=== PATIENT | female | born 1975 | race Caucasian/White ===

== ENCOUNTER 2022-11-04 15:36 | Emergency (ER) | payer OTHER, SELFPAY ==
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
[2022-11-04 15:49] VITALS: BP 127/81; PULSE 65; RESP 18; TEMP 36.5; O2SAT 100
--- NOTE | 2022-11-04 16:56 | PC.NURSE ---
refused c-collar, pt reported she is claustrophobic and cannot wear collar. ERP informed
--- NOTE | 2022-11-04 17:00 | PC.NURSE ---
pt refusing monitor, reports it makes her anxious.
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
[2022-11-04] MEDS: MECLIZINE HCL 25 MG TABLET PO (18:19)
[2022-11-04] MEDS: ACETAMINOPHEN 500 MG TABLET 1000 MG PO (18:19)
[2022-11-04 18:35] VITALS: BP 126/74; PULSE 68; RESP 16; TEMP 36.9; O2SAT 98
== END 2022-11-04 18:35 | disposition home or self-care (01) ==
PROVIDERS: Emergency Provider Physician Assistant; PCP Internal Medicine Infectious Disease
DX: S16.1XXA Strain of muscle, fascia and tendon at neck level, initial encounter (principal); S39.012A Strain of muscle, fascia and tendon of lower back, initial encounter; M47.812 Spondylosis without myelopathy or radiculopathy, cervical region; M47.816 Spondylosis without myelopathy or radiculopathy, lumbar region; V49.40XA Driver injured in collision with unspecified motor vehicles in traffic accident, initial encounter
CPT/HCPCS: 70450; 72110; 72125; 99284; A9270; L0140

== ENCOUNTER 2025-02-18 15:56 | Emergency (ER) | payer OTHER, SELFPAY ==
--- OUTSIDE RECORDS SUMMARY | 2025-02-18 16:00 | XMS_ITS | Clinical Summary ---
Author Organization [facility] Address [address] [place] [id number] Care Team Providers Care Equipment Processor Name Role Phone Unavailable Primary Care Provider Unavailabl e Social History Tobacco Use Types Packs/Day Years Used Date Smoking Tobacco: Never Assessed Comments Unknown Sex and Gender Information Value Date Recorded Sex Assigned at Not on file Legal Sex Female 8:02 PM CDT Gender Identity Not on file Sexual Orientation Not on file Last Filed Vital Signs Vital Sign Reading Time Taken Comments Blood Pressure 90/66 08/20/2012 6:49 PM CDT Pulse 70 08/20/2012 6:49 PM CDT Temperature - - Respiratory Rate - - Oxygen Saturation - - Inhaled Oxygen Concentration - - Weight 76.2 kg (168 lb) 07/19/2012 11:55 AM CDT Height 167.6 cm (5' 6) 07/19/2012 11:55 AM CDT Body Mass Index 27.12 07/19/2012 11:55 AM CDT Plan of Treatment Health Maintenance Due Date Last Done Comments Cervical Cancer Screening Pa p Smear (Age 30 to 64) Every 3 Years 1975 Colorectal Cancer Screening Colonoscopy (10 Years) 1975 Annual Physical 1978 Hepatitis C 1993 DTaP, Tdap and Td Vaccines ( 1 - Tdap) 1994 Hepatitis B Vaccines (1 of 3 - 19+ 3-dose series) 1994 Cervical Cancer Screening Pa p with HPV Testing (Age 30 to 64) Every 5 Years 2005 Cervical Cancer Screening with HPV 2005 Mammogram Screening 2015 COVID-19 Vaccine ( - 2024-2 6 season) 2024 Influenza Adult (#1) 2024 Pneumococcal Vaccine: 50+ Ye ars (1 of 1 - PCV) 2025 Zoster Vaccines (1 of 2) 2025 Hepatitis A Vaccines Aged Out No long er eligible based on patient's age to complete this topic Meningococcal B Vaccine Aged Out No l onger eligible based on patient's age to complete this topic Meningococcal Vaccine Aged Out No richard arun eligible based on patient's age to complete this topic RSV Immunizations Under 20 Months Aged Out No longer eligible based on patient's age to complete this topic
--- OUTSIDE RECORDS SUMMARY | 2025-02-18 16:00 | XMS_ITS | Data Portability ---
Author Organization RHEA DIMPLERobel Tidwell Address [address] [place] [address] Care Team Providers Care Hop Grower Name Role Phone GARY CHILDS Practice Management Consultant LOREN PATIÑO Lean Manager Assessment Encounter Date Assessment Date Assessment LastModified by Organization Details LastModified Time 04/05/2021 04/05/2021 I believe that Ms Purvis is able to return at this time, she however still needs to be seen by the psychiatrist. She did not like the way she felt after her sessions with the therapist. oajaun Not available 04/05/2021 18:46:15 12/15/2021 12/15/2021 She has a history of Thyroid nodules and follows up with both endocrinology and ENT oajao Not available 12/15/2021 20:49:21 05/16/2022 05/16/2022 I have reviewed the anatomy of her neck with her, the esophagus is posterior to the trachea and it is unlikely that it is causing the prominence in her suprasternal notch. oarogero Not available 05/16/2022 17:50:35 Plan of Treatment Reminders Order Date Submit Date Provider Last Modified By Organization Details Last Modified Time Details Appointments None recorded. Lab ARCELIA (antinuclea r antibodies) titer + pattern, ifa, serum 2022 023 [facility] ([employer] [facility]), [address], [place], [address], 09:48:25 dsDNA Ab, serum 2022 023 [facility] ([employer] venrty), [address], [place], [address], 3 09:48:25 rf (rheumatoid factor), serum 2022 023 [facility] ([employer] ven[facility]), [address], [place], [address], 3 15:34:46 ARCELIA (antinuclea r antibodies) screen, serum 2022 023 [facility] ([facility]), [address], [place], [address], 3 06:35:59 ESR (erythrocyt e sedimentati on rate), blood 2022 023 [facility] ([facility] venr[facility]), [address], [place], [address], 3 15:34:46 TSH + free T4, serum 2021 022 [facility] ([facility]), [address], [place], [address], 2 13:36:45 vitamin D, 25-hydroxy, total, serum 2021 022 [facility] ([facility]), [address], [place], [address], 3 12:55:37 noninvasive colorectal cancer DNA + occult blood screening, QL, stool 2021 022 [place] [employer], [address], [address], [place], [address], 3 10:18:28 CBC w/ auto diff 2021 [facility] ([employer] [facility]), [address], [place], [address], 3 12:54:45 CMP, serum or plasma 2021 [facility] ([employer] [facility]), [address], [place], [address], 2 11:10:17 lipid panel, serum 2021 [facility] ([employer] [facility]), [address], [place], [address], 3 12:55:02 urinalysis, complete 2021 [facility] ([employer]), [address], [place], [address], 2 11:12:40 HbA1c (hemoglobin A1c), blood 2021 [facility] ([employer] [facility]), [address], [place], [address], 3 12:55:29 Referral psychiatris t referral 2021 [facility] Not available 2 09:27:15 Procedures None recorded. Surgeries None recorded. Imaging US, neck, soft tissue - Swelling anterior part of the neck 2021 022 [facility], [address], [place], [address], 3 18:11:44 MAMMO, screening, bilateral [address] [facility], [address], [place], [address], 13:18:31 MAMMO, screening, bilateral 2021 022 [facility], [address], [place], [address], 13:04:21 Medication Orders None recorded. Patient TargetsNo targets recorded. Patient Instructions Encounter Date Encounter Id Patient Instructions Last Modified By Organization Details Last Modified Time 04/05/2021 [id number] prediabetes: car e instructions oajao Not available 04/05/2021 15:44:16 learning about breast cancer screening oajao Not available 04/05/2021 15:38:43 Labs RTW Psychiatrist as referred MMG Follow up in 6 months oajao Not available 04/05/2021 18:47:56 10/11/2021 [id number] body mass index: care instructions oajao Not available 10/11/2021 13:07:21 learning about healthy weight oajao Not available 10/11/2021 13:07:21 Labs Cologuard MMG? 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 oajao Not available 05/16/2022 12:36:45 Reason for Referral Psychiatrist Referral for Ad justment disorder with mixed anxiety and depressed mood Referring Physician: Jon Morales, Internal Medicine, Encounter Date: 04/05/2021 Results Created Date Observation Date Name Description Value Unit Range Abnormal Flag Note LastModifiedBy Organization Detail LastModifiedTime 10/12/1910/11/2022 COLOG UARD cologuard result Cancel led - Order d not applic able Not Available [facility] [address], [place], [address], 10/11/2022 10:18:27 05/09/19 23 05/09/2022 US, neck, soft tissu e No observ ation record ed. [facility] [address] [facility], [place], [address], 05/16/2022 12:28:14 11/05/19 23 11/04/2022 CT, head, w/o contr ast No observ ation record ed. [address] [facility], [place], [address], 11/06/2022 08:28:22 11/05/19 23 11/04/2022 CT, cervi yamil spine , w/o contr ast No observ ation record ed. [address] [facility], [place], [address], 11/06/2022 08:29:06 11/05/19 23 11/04/2022 XR, lumba r spine No observ ation record ed. [address] [place] [address], [address], 11/06/2022 08:29:39 Result Notes None recorded. Problems Name Problem SNOMED Code Status Onset Date Resolution Date Notes Provider Name and Address Organization Details Recorded Time Abnormal weight gain 026991993 Active Jon Morales MD Attn: Naty g,[address] [facility], [place], [address], [facility] 5 16:56:30 Sleep disorder 45132730 Active Jon Morales MD Attn: Accountin g,[address] [facility], [place], [address], [place] [facility] 5 11:45:27 Glomerulone phritis 89922640 Active Jon Morales MD Attn: Accountin g,[address] [facility], [place], [address], [place] [facility] 5 17:49:17 Mammography abnormal 042792809 Active Jon Morales MD Attn: Kingsleyin g,[address] [facility], [place], [address], [place] [facility] 5 16:56:30 Fatigue 18180087 Active Jon Morales MD Attn: Naty g,[address] [facility], [place], [address], [place] [facility] 5 16:56:30 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 Jon Morales MD Attn: Kingsleyin g,[address] [facility], [place], [address], [place] [facility] 0 11:49:42 History of thyroid disorder 725918975 Active 2019 Jon Morales MD Attn: Naty g,[address] [facility], [place], [address], [place] [facility] 0 12:43:12 Feeling stressed 614958920 Active 2019 Jon Morales MD Attn: Naty g,[address] [facility], [place], [address], [place] [facility] 0 12:44:04 Adjustment disorder with mixed anxiety and depressed mood 621374949 Active 2021 Jon Morales MD Attn: Naty g,[address] [facility], [place], [address], [place] [facility] 2 15:37:25 Colonoscopy declined 4053213271103 00 Active 2021 Jon Morales MD Attn: Naty reilly,[address] [facility], [place], [address], [place] [facility] 2 13:21:14 Vitamin D deficiency 50285178 Active 2021 Jon Morales MD Attn: Naty reilly,[address] [facility], [place], [address], [place] [facility] 2 13:43:41 Pain of multiple joints 59291723 Active 2022 Jon Morales MD Attn: Naty reilly,[address] [facility], [place], [address], [place] [facility] 3 12:23:00 Problem Notes None recorded. Procedures Surgical History Date Name Laterality Status Provider Name and Address Organization Details Recorded Time excision of lesion of skin completed Jon Morales MD Attn: Accounting, [facility], [place], [address], [facility] 06/10/2019 11:46:49 Imaging Results None recorded. Procedure Notes None recorded. Medical Equipment None Reported. Allergies No known drug allergies Medications Name Sig Start Date Stop Date Status Note LastModified by Organization Details LastModified Time ofloxacin 0.3 % eye drops 12/15 completed Not Available Not Available Not Available aspirin 81 mg tablet,gage yed release Take 1 tablet every day by oral route for 90 days. active PRN Not Available Not Available No t Available amoxicillin 875 mg tablet TK 1 T PO BID TAT 06/21 completed Not Available Not Available Not Available hydrocortis one 2.5 % lotion 03/02 completed Not Available Not Available Not Available triamcinolo ne acetonide 0.1 % topical ointment 03/02 completed Not Available Not Available Not Available nitroglycer in 0.4 mg sublingual tablet DISSOLVE ONE TABLET UNDER THE TONGUE EVERY 5 MINUTES NEEDED FOR CHEST PAIN. DO NOT EXCEED A TOTAL OF 3 DOSES IN 15 MINUTES. IF PAIN IS NO active Not Available Not Available No t Available mirtazapine 15 mg tablet Take 1 tablet every day by oral route at bedtime for 30 days. 06/24 completed Not Available Not Available Not Available azelastine 137 mcg (0.1 %) nasal spray active Not Available Not Available Not Available clobetasol 0.05 % scalp solution 03/02 completed Not Available Not Available Not Available fluticasone propionate 50 mcg/actuati on nasal spray,suspe nsion active Not Available Not Available Not Available clobetasol 0.05 % shampoo 03/02 completed Not Available Not Available Not Available nitrofurant oin monohydrate /macrocryst als 100 mg capsule 10/11 completed Not Available Not Available Not Available Vitamin D3 50 mcg (2,000 unit) tablet Take 1 tablet every day by oral route as directed for 30 days. 2020 active Not Available Not Available Not Avai lable Vitals Date Recorded Body height Body mass index (BMI) Body weight Heart rate Respiratory rate Oxygen saturation Systolic And Diastolic Provider Name and Address Organization Details Last Updated DateTime 2 167.64 cm 32.1 kg/m2 68640.1 6 g 86 /min 14 /min 99 % 110/70 mm[Hg] Marie Cordova MA [facility] 2 15:14:25 Date Recorded Body height Body mass index (BMI) Body weight Heart rate Oxygen saturation Respiratory rate Systolic And Diastolic Provider Name and Address Organization Details Last Updated DateTime 3 167.64 cm 29.9 kg/m2 73737.5 9 g 76 /min 98 % 14 /min 110/70 mm[Hg] Marie Cordova MA [facility] 3 13:07:10 Date Recorded Body height Body mass index (BMI) Body weight Oxygen saturation Respiratory rate Heart rate Systolic And Diastolic Provider Name and Address Organization Details Last Updated DateTime 3 167.64 cm 30 kg/m2 33255.1 8 g 97 % 14 /min 78 /min 110/70 mm[Hg] Marie Cordova MA [facility] 3 12:14:39 Date Recorded Body height Body mass index (BMI) Body weight Respiratory rate Heart rate Oxygen saturation Systolic And Diastolic Provider Name and Address Organization Details Last Updated DateTime 2 167.64 cm 31 kg/m2 61512.0 2 g 14 /min 84 /min 98 % 114/80 mm[Hg] ADILSON [place] [facility] 2 13:04:43 Date Recorded Body height Body mass index (BMI) Body weight Body temperature Oxygen saturation Heart rate Systolic And Diastolic Provider Name and Address Organization Details Last Updated DateTime 2 167.64 cm 30.8 kg/m2 51832.4 2 g 98.2 [degF] 99 % 59 /min 104/64 mm[Hg] Sylvester Gee [place] [facility] 2 13:12:17 Social History Question Answer Notes LastModified by Organizat ion Details LastModified Time Tobacco Smoking Status Former Smoker Jon Morales MD Attn: Accounting,[address] [place], [address], [facility] 03/02/2015 16:37:51 Do You Have An Advance Directive? No Information n ot available 05/14/2014 Are You Blind Or Do You Have Difficulty Seeing? No Information n ot available 06/21/2020 What Is Your Level Of Caffeine Consumption? Heavy Information not available 05/14/2014 How Much Tobacco Do You Chew? None Information not available 05/14/2014 In The 14 Days Before Symptom Onset, Have You Had Close Contact With A Laboratory-confirm ed COVID-19 While That Case Was Ill? No Information n ot available 06/10/2019 In The 14 Days Before Symptom Onset, Have You Had Close Contact With A Person Who Is Under Investigation For COVID-19 While That Person Was Ill? No Information not available 06/10/2019 Have You Been To An Area Known To Be High Risk For COVID-19? No Information not available 06/10/2019 Are You Deaf Or Do You Have Serious Difficulty Hearing? No Information not available 06/21/2020 What Type Of Diet Are You Following? REGULAR Information n ot available 06/21/2020 Education 2 Year College Information not available 05/14/2014 Are There Any Guns Present In Your Home? No Information not available 05/14/2014 Hard Of Hearing Or Deaf In One Or Both Ears? No Information not available 05/14/2014 Legally Blind In One Or Both Eyes? No Information no t available 05/14/2014 Marital Status Informati on not available 05/14/2014 What Was The Date Of Your Most Recent Tobacco Screening? 05/16/2022 Information not available 05/16/2022 Performs Monthly Self-breast Exam? No Information no t available 05/14/2014 Do You Use Your Seat Belt Or Car Seat Routinely? Yes Information not available 06/21/2020 Seat Belts Used Routinely Yes Information not available 05/14/2014 Smoke Alarm In Home Yes Information not available 05/14/2014 Do You Have Smoke And Carbon Monoxide Detectors In Your Home? Yes Information not available 06/21/2020 At What Age Did You Start Smoking Tobacco? 20 Information not available 05/14/2014 How Much Tobacco Do You Smoke? 1 PPW Information not available 05/14/2014 General Stress Level Medium Information not available 05/14/2014 Do You Use Sunscreen Routinely? Yes Information not available 05/14/2014 On What Date Was Tobacco Cessation Counseling Provided? 02/09/2021 [email or web address] Information not available 02/09/2021 How Many Years Have You Smoked Tobacco? 19 Information not available 05/14/2014 Sex: Unknown Functional Status Question Answer Note LastModified by Organizat ion Details LastModified Time What is your level of alcohol consumption? None Information not available 05/14/2014 Do you or have you ever used smokeless tobacco? Never used smokeless tobacco Information not available 06/10/2019 Are you able to care for yourself independently? 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 Never used electronic cigarettes Information not available 06/10/2019 What is your exercise level? Occasional Information not available 06/21/2020 Mental Status None recorded. Family History Nothing Reported. Medical History Condition Response Thyroid Problems Y Kidney or Bladder Problems Y Gynecological History Statement/Question Response Flow Moderate Date of LMP 05/30/2020 Frequency of Cycle (Q days) 28 On BCP's at Conception? N Menses Monthly Y Duration of Flow (days) 7 Age at Menarche 13 Current Control Method None Age at First Child 19 LMP Definite Obstetrics History GPAL:G 0 P 0 0 0 0 Immunizations Vaccine Type Date Status Note Provider Nam e and Address Organization Details Recorded Time Influenza, split virus, quadrivalent, preservative 9 completed Jon Morales MD Attn: Accounting[address] [place], [place], [address] [place] [address], [place] [facility] 06/10/2019 11:41:24 Influenza, split virus, quadrivalent, preservative 0 completed Jon Morales MD Attn: Accounting[address] [place], [address] [place] [address], [place] [facility] 06/21/2020 12:51:42 SARS-COV-2 (COVID-19) vaccine, UNSPECIFIED 1 completed Jon Morales MD Attn: Accounting[address] [place], [address] [place] [address], [place] [facility] 10/28/2020 12:25:01 SARS-COV-2 (COVID-19) vaccine, UNSPECIFIED 1 completed Jon Morales MD Attn: Accounting[address] [place], [address] [place] [address], [place] [facility] 10/28/2020 12:24:54 COVID-19, mRNA, LNP-S, PF, 30 mcg/0.3 mL dose 2 completed Jon Morales MD Attn: Accounting[address] [place], [address] [place] [address], [place] [facility] 04/05/2021 15:30:11 influenza, unspecified formulation 2 completed Marie Cordova MA null, [place] [facility] 04/21/2022 13:05:38 Influenza, high-dose, trivalent, PF 5 completed Jon Morales MD Attn: Accounting[address] [place], [place], [address] [place] [address], [facility] 12/15/2021 13:35:13 Tdap 5 completed Not Available [facility] 04[facility]12[facility] 02:30:20 Past Encounters Encounter ID Performer Location Encounter Start Date Encounter Closed Date Diagnosis/Indication Diagnosis SNOMED-CT Code Diagnosis ICD10 Code Diagnosis IMO Codes Diagnosis Note [id number] MD Cara Vargas (Adult Med) [address] [place] [phone] 05/14/2014 10:17:27 05/14/2014 12:11:55 General examination of patient [id number] 39 y/o WF who was last seen in this office 02/05/2014 , in the interim she was seen by the dermatolog ist who wants to remove a lesion on her posterior thorax, although she may have to switch providers because it is out of network. She did see her gynecologi st, but she lost her MMG request. Her CXR was reviewed and it was normal. The venous duplex scan was negative Her labs were all reviewed and they were all wnl except the FBS of 101, however her HBA1C was 5.5. Weight loss, exercise and a prudent diet Abnormal weight gain 735781236 There is a family history of DM, but her HBA1C is normal. This is probably multifacto rial, she works from home and she admits to being less active as well Sleep disorder 59867469 Fa tigue despite an adequate amount of sleep, weight gain of 10lbs from her last visit in February 2014 and another 34lb weight gain from 2011. She is not sure whether or not she snores. [id number] MD Cara Vargas (Adult Med) [address] [place] [id number] 03/02/2015 16:08:10 03/03/2015 12:16:51 Mammography abnormal 386279218 R92.8 Abnormal MMG 08/12/14 US of the right breast 08/24/14 asymmetric normal breast tissue MMG & US done 03/01/2015 were reviewed with the patient, 6 month follow up MMG was recommende d and it has been ordered Abnormal weight gain 161 171194 R63.5 R73.01 There is a family history of DM, but her HBA1C is normal. This is probably multifacto rial, she works from home and she admits to being less active as well She has changed her diet and she has stopped smoking. She should decrease her caloric intake and she should initiate an exercise regimen. Fatigue 84523901 R53.83 An evaluation for sleep apnea was done in August 13, 2014, she needs to reschedule her sleep studies. She also complains of her neuropathi c symptoms, I will check her B12/Folate . 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 Mesangial proliferative glomerulonephritis 09977615 N05.3 Screening for malignant neoplasm of breast 818748115 Z12.31 She should schedule her MMG. 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 Screening for malignant neoplasm of cervix 156943026 Z12.4 Disorder o f lipid metabolism 925731330 E78.9 [id number] MD Cara Vargas (Adult Med) [address] [place] [phone] 07/22/2020 08:00:23 07/23/2020 10:30:33 Infection screening 772829328 Z11.9 [id number] MD Cara Vargas (Adult Med) [address] [place] [phone] 10/28/2020 12:04:47 11/01/2020 10:47:26 Screening for malignant neoplasm of cervix 095164040 Z12.4 Reschedule d Stress 14635005 Z73.3 Adjustment disorder with mixed anxiety and depressed mood 181857603 F43.[address] to see ASAPER/911 if she has HI or SIStart Remeron 15 mg HS, side effects were discussed Paresthesia 98468299 R20 .2 Atypical chest pain 1025 46622 R07.89 [id number] MD Cara Kim (Adult Med) [address] [place] [id number] 02/09/2021 15:13:21 02/10/2021 06:44:48 Feeling stressed 578179011 Z73.3 Discussed RTW. She will contact . Letter sent [id number] MD Cara Vargas (Adult Med) [address] [place] [id number] 04/05/2021 15:07:32 04/07/2021 09:43:26 Adjustment disorder with mixed anxiety and depressed mood 545310940 F43.[address] to seeContinu e Remeron 15 mg HS. Screening for malignant neoplasm of breast 177342913 Z12.31 She should schedule her MMG. Impaired f asting glycemia 869588340 R73.01 [id number] MD Cara Vargas (Adult Med) [address] [place] [phone] 10/11/2021 12:55:46 10/12/2021 11:23:53 Adult health examination 598267583 Z00.01 Body mass index 30+ - obesity 193351852 Z68.31 Screening mammography of bilateral breasts 1751334401 30028 Z12.31 She apparently finds the MMG very painful. Screening for malignant neoplasm of colon 166764082 Z12.11 Dysphonia 82143095 R49.9 Vitamin D deficiency 347 78922 E55.9 Labs 06/23/2020 Normal TSH, low Vitamin D (11) Start Vitamin D Colonoscopy declined 037 9777264 15275 Z53.20 [id number] [facility] [address] [place] [phone] 12/15/2021 12:44:43 12/16/2021 14:23:13 Neck swelling 718326812 R22.1 [id number] Jon Morales MD [facility] (Adult Med) [address] [place] [id number] 04/21/2022 12:51:45 04/25/2022 12:23:51 Body mass index 25-29 - overweight 274327700 Z68.29 Overweight 161102888 E66 .3 SARS-CoV-2 vaccination declined 7179540570 Z28.21 Mammogram declined 03695 5004 Z53.20 That is too painful for me Colonoscopy declined 360 2541874 49167 Z53.20 That is too scary for me Pain of mu ltiple joints 21837091 M25.50 [id number] [facility] [address] [place] [id number] 05/16/2022 12:08:33 05/17/2022 09:40:10 Anti-nuclear factor detected 588010973 R76.8 Pain of mu ltiple joints 74696458 M25.50 Her ARCELIA was positive 1:320, homogeneou s pattern Change in voice 88275870 5 R49.9 Health Concerns Section Related Observation LastModified by Organization Detai ls LastModified Time None Recorded Concern Status LastModified by Organization Details LastModified Time None Recorded Advance Directives Directive N: Payers Insurance Date Sequence Insurance Name Policy Number Policy Ruiz Covered Member ID Ruiz Member ID Guarantor Name 07/31/2023 1 HERBERT [id number] Phyllis Purvis [id number] Phyllis Purvis Notes Date Note Type Note Provider Name and Address Organization Details Recorded Time 04/05/2021 text/html Anxiety/Depressi onRep orted by PatientHPIFor context, patient reportsmajor life stressors. For quality, patient reportssymptoms improved. For severity, patient reportsdenies suicidal ideations,able to maintain relationships, anddoes not interfere with activities of daily living. For duration, patient reportssymptoms lasting over 2 weeksandstablizing. For onset/timing, patient reportsstill present. For associated symptoms, patient reportsdenies homicidal ideations,no significant weight gain,no significant weight loss,no visual/auditory hallucinations,no delusions,no shortness of breath,mood good,no anxiety,no crying spells,no panic,no isolation,sleeping well,appetite good,energy good,no apathy, andmaintaining functionality.ROS as noted in the HPI Well, I am on a leave of abscence still. They make me feel worseI feel better nowBasically I am here for you to release me back to workI have to. but I am not really ready She has been speaking with a psychologist through [facility], she did not find this beneficial as it only makes her cry. With regards to her referral to the psychiatrist, she never made an appointment and she also stated that the psychiatrists at our site are not in network. Her son who appears to be the major source of her stress is better as he is under the care of a provider, she has also been working 4 hour days. Jon Morales MD Attn: [address] [place], [address], [facility] 04/05/2021 18:48:11 10/11/2021 text/html ROS as noted in the HPI They called me, you wanted to see me for a check upI lost my voice in MarchI had cystitis, I went to urgent care Ms Purvis returns, she has a history of vocal cord polyps and then developed dysphonia. She was seen by ENT, declined to get scoped and opted for Speech therapy. 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 For trauma, patient reportsno. For neurological complaints, patient reportsnone.ROS as noted in the HPI I have this, it was definitely biggerI sort of feel like air constriction She noticed swelling on the anterior part of her neck as well as limitation of air movement when she leans towards the left. Jon Morales MD Attn: Accounting[address] [facility], [place], [address], [facility] 12/15/2021 20:49:58 04/21/2022 text/html Hand/FingersRepo rted by PatientHPIFor associated symptoms, patient reportsswelling. For hand dominance, patient reportsright. For location, patient reportsbilateral. For quality, patient reportsaching. For severity, patient reportsmoderate. For duration, patient reports___ months. For timing, patient reportschronic. For context, patient reportscannot identify. For alleviating factors, patient reportsnothing helps. For aggravating factors, patient reportscannot identify. For previous surgery, patient reportsnone. For prior imaging, patient reportsnone. For previous injections, patient reportsnone. For previous pt, patient reportsnone. For work related, patient reportsno. For working, patient reportsregular duty.ROS as noted in the HPI Just a check up, they called me from your officeMy joints hurt, stiff and swollen Ms Purvis is doing well, she has noticed pain, stiffness and swelling in the interphalangeal joints of both hands. her symptoms improve as the day progresses. Her force adjustment supervisor ordered an US of the breast as she absolutely refuses to have a MMG and she is yet to turn in her Cologuard but continues to refuse a colonoscopy. Jon Morales MD Attn: Accounting[address] [facility], [place], [address], [facility] 04/21/2022 13:47:57 05/16/2022 text/html ROS as noted in the HPI I am doing okayI have this in my neck, is it possible that I have a hernia on the esophagus?He wouldn't look at my vocal cords Ms Purvis returns to review her results, she is convinced that there is a soft tissue mass in her suprasternal notch, she thinks she may also have a Zeckel's diverticulum putting pressure in the same area. She had dysphonia recentlyand was seen by ENT, the plan was an examination of her vocal cords, she is unwilling to get this done unless she is under anesthesia. She also describes issues with the muscles around her neck that improved after taking Epsom salt baths. Jon Morales MD Attn: [address]ing[address] [place], [address], [facility] 05/16/2022 17:51:21 OBGyn Episode No OBEpisode recorded.
--- OUTSIDE RECORDS SUMMARY | 2025-02-18 16:00 | XMS_ITS | Encounter Summary ---
Author Organization [facility] Healthcare Address [address] [place] [address] Care Team Providers Care Bowling Alley Floors Installer Name Role Phone Lauren Martin MD Primary Care Provider [phone] Jon Morales MD Primary Care Provider Encounter Details Date Type Department Care Team (Late st Contact Info) Description 06/10/2019 Orders Only [facility] Health Information Management [address] [place] [address] Scanning, Provider Social History Tobacco Use Types Packs/Day Years Used Date Smoking Tobacco: Every Day Comments Unknown Sex and Gender Information Value Date Recorded Sex Assigned at Not on file Legal 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 Gender Identity Not on file Sexual Orientation Not on file documented as of this encounter Plan of Treatment Not on file documented as of this encounter Procedures Procedure Name Priority Date/Time Associated Diagnosis Comments SCAN - OTHER ORDERS 06/10/2019 documented in this encounter Results * SCAN - OTHER ORDERS (06/10/2019) us Provider Scanning Final Result documented in this encounter Visit Diagnoses Not on filedocumented in this encounter Additional Health Concerns Infection Onset Date Last Indicated Resolved Time COVID: Suspected 02/17/2023 02/17/2023 02/17/2023 4:07 PM CREATIVE RECRUITER COVID19 02/17/2023 02/17/2023 02/27/2023 3:06 AM CREATIVE RECRUITER COVID: Recovered Comment:Added based on recent COVID infection. 02/27/2023 03/29/2023 05/28/2023 3:[address] documented as of this encounter Care Teams Bowling Alley Floors Installer Relationship Specialty [place] [id number] [facility] [address] [place] [address] PCP - General 10/02/19 01/08/20 Jon Morales MD [address] [address] PCP - General 01/09/20 documented as of this encounter
--- OUTSIDE RECORDS SUMMARY | 2025-02-18 16:00 | XMS_ITS | Encounter Summary ---
Author Organization [facility] Healthcare Address [address] [place] [address] Care Team Providers Care Guest Relations Agent Name Role Phone Jon Morales MD Primary Care Provider Reason for Visit * Reason Onset Date Comments Cancel 09/09/2021 Patient called a nd she went the wrong way and was too late Encounter Details Date Type Department Care Team (Late st Contact Info) Description 09/09/2021 Telephone [facility] [place] [address] Neris Menjivar, YOU Cancel (Patient called and she went the wrong way and was too late) Social History Tobacco Use Types Packs/Day Years Used Date Smoking Tobacco: Former AUDIT-C Answer Date Recorded Q1: How often do you have a drink containing alc ohol? 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 02/27/2023 03/29/2023 05/28/2023 3:[address] documented as of this encounter Care Teams Guest Relations Agent Relationship Specialty Start Date End Date Jon Morales MD [address] [place] [address] PCP - General 01/09/20 documented as of this encounter
--- OUTSIDE RECORDS SUMMARY | 2025-02-18 16:00 | XMS_ITS | Data Portability ---
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 Plan of Treatment Reminders Order Date Submit Date Provider Last Modified By Organization Details Last Modified Time Details Appointments None recorded. Lab None recorded. Referral None recorded. Procedures None recorded. Surgeries None recorded. Imaging None recorded. Medication Orders aspirin 81 mg tablet,de layed release 021 [facility] [employer], [address] [place] [address], [address], [place], [address], 12:16:27 aspirin 81 mg tablet,de layed release 021 [facility] [employer], [address] [place] [address], [address], [place], [address], 16:58:25 Patient TargetsNo targets recorded. Patient Instructions Encounter Date Encounter Id Patient Instructions Last Modified By Organization Details Last Modified Time 02/13/2018 [id number] Weight loss 20 pounds Exercise advised Low cholesterol diet advised Low sodium diet advised. [email or web address] Not available 02/13/2018 17:48:38 08/18/2020 [id number] Exercise advised Low cholesterol diet advised Low sodium diet advised. [email or web address] Not available 08/18/2020 10:24:47 Reason for Referral None Reported. Results Created Date Observation Date Name Description Value Unit Range Abnormal Flag Note LastModifiedBy Organization Detail LastModifiedTime 02/19/20 18 02/13/2018 elect rocar diogr am No observ ation record ed. [email or web address] Not Available 2017 16:41:36 04/23/19 19 02/25/2018 elect rocar diogr am No observ ation record ed. [email or web address] Not Available 2018 10:58:15 04/23/19 19 02/25/2018 exerc ise stres s echoc ardio gram No observ ation record ed. [email or web address] Not Available 2018 11:01:44 04/23/19 19 02/25/2018 fernando r monit or No observ ation record ed. [email or web address] Not Available 2020 13:16:10 08/20/19 21 08/18/2020 elect rocar diogr am No observ ation record ed. [email or web address] Not Available 08/20 13:32:24 12/02/19 21 09/14/2020 jonas can cardi olite stres s test (PROC ) No observ ation record ed. [email or web address] Not Available 2020 12:48:19 04/20/19 22 09/13/2020 XR, chest No observ ation record ed. [email or web address] Not Available 2021 10:49:28 07/22/19 22 09/10/2020 US, echoc ardio gram No observ ation record ed. [email or web address] Not Available 2021 11:14:23 07/22/19 22 09/10/2020 NM, myoca rdial perfu antonino scan, w/ stres s No observ ation record ed. [email or web address] Not Available 2021 11:15:50 05/08/19 23 05/04/2022 elect rocar diogr am No observ ation record ed. [email or web address] Not Available 2022 11:31:06 05/17/19 23 05/11/2022 elect rocar diogr am No observ ation record ed. [email or web address] Not Available 2022 15:20:44 Result Notes None recorded. Problems Name Problem SNOMED Code Status Onset Date Resolution Date Notes Provider Name and Address Organization Details Recorded Time Essential hypertension 55746596 Active 2018 Not Available [facility] 18:55:39 Dyslipidemia 932828609 Active 2018 Not Available [facility] 18:55:39 Dyspnea on exertion 88930513 Active 2018 Not Available [facility] 18:55:39 Palpitations 26528838 Active 2018 Not Available [facility] 18:55:39 Atypical chest pain 054934569 Active 2018 Not Available [facility] 18:55:39 Problem Notes None recorded. Procedures Surgical History Date Name Laterality Status Provider Name and Address Organization Details Recorded Time cordectomy of vocal cord completed Jose Antonio Elaine MD [address] [place], [address], [facility] 02/13/2018 17:34:37 Imaging Results None recorded. Procedure Notes None recorded. Medical Equipment None Reported. Allergies No known drug allergies Medications Name Sig Start Date Stop Date Status Note LastModified by Organization Details LastModified Time ofloxacin 0.3 % eye drops active Not Available Not Available Not Available aspirin 81 mg tablet,gage yed release Take 1 tablet every day by oral route. active Not Available Not Available No t Available amoxicillin 875 mg tablet TK 1 T PO BID TAT 08/18 completed Not Available Not Available Not Available nitroglycer in 0.[address] 1 tablet 3 times a day by sublingua l route as needed. active Not Available Not Available No t Available mirtazapine 15 mg tablet active Not Available Not Available Not Available azelastine 137 mcg (0.1 %) nasal spray active Not Available Not Available Not Available fluticasone propionate 50 mcg/actuati on nasal spray,suspe nsion active Not Available Not Available Not Available nitrofurant oin monohydrate /macrocryst als 100 mg capsule active Not Available Not Available Not Available Vitals Date Recorded Body height Body mass index (BMI) Body weight Heart rate Respiratory rate Oxygen saturation Systolic And Diastolic Provider Name and Address Organization Details Last Updated DateTime 3 167.64 cm 30.2 kg/m2 42907.7 7 g 76 /min 16 /min 98 % 124/82 mm[Hg] Juan Tillman [facility] 3 17:45:08 Date Recorded Body height Body mass index (BMI) Body weight Heart rate Respiratory rate Oxygen saturation Body temperature Systolic And Diastolic Provider Name and Address Organization Details Last Updated DateTime 1 167.64 cm 30.7 kg/m2 87640.5 5 g 68 /min 18 /min 98 % 96.2 [degF] 110/70 mm[Hg] Torrie Ovalles [facility] 1 15:27:41 Date Recorded Body height Body mass index (BMI) Body weight Heart rate Oxygen saturation Systolic And Diastolic Provider Name and Address Organization Details Last Updated DateTime 1 167.64 cm 32.3 kg/m2 06910.4 7 g 78 /min 98 % 112/74 mm[Hg] FREDRICK ALMAGUER [facility] 1 11:08:15 Date Recorded Oxygen saturation Heart rate Body weight Body mass index (BMI) Body height Systolic And Diastolic Provider Name and Address Organization Details Last Updated DateTime 8 99 % 69 /min 41831.8 1 g 29.4 kg/m2 167.64 cm 120/60 mm[Hg] IRLANDA Ruiz [facility] 8 17:10:46 Social History Question Answer Notes LastModified by [employer] Details LastModified Time Tobacco Smoking Status Former Smoker Not Available [facility] 01/27/2020 03:30:43 What Was The Date Of Your Most Recent Tobacco Screening? 02/13/2018 [id number] Information not available 01/27/2020 Sex: Unknown Functional Status Question Answer Note LastModified by [employer] Details LastModified Time Do you or have you ever used smokeless tobacco? Former smokeless tobacco user Information not available 08/18/2020 Do you or have you ever used e-cigarettes or vape? Never used electronic cigarettes Information not available 08/18/2020 Mental Status None recorded. Family History Relationship Description Onset Age of this Age Resolved Age Notes LastModified by Organization Details LastModified Time Paternal Grandmother Heart disease [email or web address] Not available 01/25 17:33:14 Medical History Condition Response Thyroid Disease Y Hyperlipidemia Y Arrhythmia Y Hypertension Y Gynecological HistoryNo gynecological history recorded. Obstetrics History GPAL:G 0 P 0 0 0 0 Past Encounters Encounter ID Performer Location Encounter Start Date Encounter Closed Date Diagnosis/Indication Diagnosis SNOMED-CT Code Diagnosis ICD10 Code Diagnosis IMO Codes Diagnosis Note [id number] MD Patricio Glover e Office [address] [place] [address] 02/13/2018 16:57:46 02/13/2018 17:53:06 Atypical chest pain 163691889 R07.89 Will get exercise stress echo, to look for any structural heart disease, and to look for any ischemia Essential hypertension 75971389 I10 Dyslipidemia 642867773 E 78.5 Needs to keep LDL less than 70, and HDL more than 40Will get fating lipids for follow up Dyspnea on exertion 6084 5006 R06.09 Palpitations 22572467 R0 0.2 24 Holter [id number] MD Patricio Ellis e Office [address] [place] [address] 08/18/2020 15:10:21 08/18/2020 15:44:49 Atypical chest pain 882861409 R07.89 Patient presents with chest pain with atypical features. Given the history, exam findings and intermedia te cardiac risk factors, I feel additional investigat ion is warranted. I have made arrangemen ts in the near future for an exercise stress nuclear test and an echocardio gram to evaluate for any ischemia or structural heart disease. The procedure was discussed with the patient, and risks, benefits, and alternativ e options were explained. Appropriat e labwork has not been performed recently, therefore I have made arrangemen ts for further testing. I have asked the patient to curtail exercise and activities until our investigat ion is complete. I have made the following adjustment s to the present medical regimen. Patient has been started on daily aspirin. Essential hypertension 47821334 I10 Patient's blood pressure is well-contr olled on present medical therapy. Patient is tolerating , without difficulty , the current medication s. I have not made changes to the current regimen. Patient is advised to maintain a blood pressure diary. Cont low Na diet. Dyslipidemia 815336740 E 78.5 Needs to keep LDL less than 70, and HDL more than 40 Will get fasting lipids for follow up 02/25/18: TC 140, TG 41, HDL 64 ,LDL 68, TSH 5.34* Dyspnea on exertion 6084 5006 R06.09 Palpitations 58462518 R0 0.2 [facility] monitor [id number] Billy De La Cruz MD [place] OFF[facility] [place] [address] 11/11/2020 10:55:54 11/11/2020 12:14:30 Atypical chest pain 662584664 R07.89 stress test negativeco nt medical management and risk factor modificati on Essential hypertension 41767168 I10 Patient's blood pressure is well-contr olled on present medical therapy. Patient is tolerating , without difficulty , the current medication s. I have not made changes to the current regimen. Patient is advised to maintain a blood pressure diary. Cont low Na diet. Dyslipidemia 061632471 E 78.5 Patient's hyperlipid emia is not well-contr olled on present medical therapy. Patient is tolerating , without difficulty , the current medication s. I have not made changes to the current regimen. Cont low cholestero l diet.FLP in 5 months 6030426 Cholestero l: 201; Triglyceri april: 65; HDL: 65; LDL: 123; HDL: 136 Dyspnea on exertion 6084 5006 R06.09 Palpitations 52567785 R0 0.2 [facility] monitor [id number] Jose Antonio Elaine MD [place] [facility] [place] [address] 05/11/2022 17:20:05 05/11/2022 18:03:24 Atypical chest pain 192935327 R07.89 stress test negativeco nt medical management and risk factor modificati on Essential hypertension 11899416 I10 Patient's blood pressure is well-contr olled on present medical therapy. Patient is tolerating , without difficulty , the current medication s. I have not made changes to the current regimen. Patient is advised to maintain a blood pressure diary. Cont low Na diet. Dyslipidemia 673310533 E 78.5 Patient's hyperlipid emia is not well-contr olled on present medical therapy. Patient is tolerating , without difficulty , the current medication s. I have not made changes to the current regimen. Cont low cholestero l diet.FLP in 5 months 6030426 Cholestero l: 201; Triglyceri april: 65; HDL: 65; LDL: 123; HDL: 136 Dyspnea on exertion 6084 5006 R06.09 Palpitations 49580301 R0 0.2 monitor was negative Health Concerns Section Related Observation LastModified by Organization Detai ls LastModified Time None Recorded Concern Status LastModified by Organization Details LastModified Time None Recorded Advance Directives Directive None Recorded Payers Insurance Date Sequence Insurance Name Policy Number Policy Ruiz Covered Member ID Ruiz Member ID Guarantor Name 11/07/2022 1 HERBERT [id number] Phyllis Purvis [id number] Phyllis Purvis Notes Date Note Type Note Provider Name and Address Organization Details Recorded Time 02/13/2018 text/html CC: chest pain 43 year-old woman with history obesity of presents for cardiac consultation with a chief complaint of chest pain, and Shortness of breath. She was in ER at [place] last night, had Palpitation, and dizziness, now with non exertional chest pain, this would last for few minutes, had negative CTA, and negative enzymes. No known history of CAD, SD, Arrhythmia, or valvular heart disease Results from this visit, or from the past: EKG 02/13/18 ; Normal sinus rhythm Within normal limits . Jose Antonio Elaine MD [address] [place], [address], [facility] 02/13/2018 17:50:05 08/18/2020 text/html 08/18/2020 CC: chest pain HPI: 45 year-old WF with PMH of HLD, HTN , obesity of presents for cardiac consultation with a chief complaint of chest pain. No known history of CAD, SD, Arrhythmia, or valvular heart disease Patient was last seen in January 2018 as a new consult, after which they were lost to followup. Her original consultation was for palpitations, dizziness, and chest pain that resulted in an ER visit. At that visit a stress echo, labs and holter were ordered, resulting in: Compliains for episodes of sharp, heavy, sqeezing chest discomfort.. no related to physical actvity. States that sometimes heart stops and restarts.. Stress Echo Exercise Test 02/25/18: EKG portion of the stress test negative for ischemia. No arrhythmias. Stress echo is negative for ischemia. No chest pain or shortness of breath. Appropriate heart rate and blood pressure response to exercise. Holter Monitor 24 hr 02/25/18: Patient remains predominantly in normal sinus rhythm during the study. No significant supraventricular arrhythmias. Frequent premature ventricular contractions, sometimes in bigeminy or trigeminy pattern. No ventricular tachycardia. No significant pauses. Symptoms of sharp chest discomfort are present during the normal sinus rate She returns today due to chest pain. She describes it sharp pain, and sometimes squeezing like someone is twisting in her chest. No correlation to activity. It has woken her up from her sleep, causing her to scream. She feels as though she is skipping beats. She is following up with endocrinology due to thyroid nodules, but she does not require medication. She is pre diabetic.PreviouslyStr ess Echo Exercise Test 02/25/18: EKG portion of the stress test negative for ischemia. No arrhythmias. Stress echo is negative for ischemia. No chest pain or shortness of breath. Appropriate heart rate and blood pressure response to exercise. Holter Monitor 24 hr 02/25/18: Patient remains predominantly in normal sinus rhythm during the study. No significant supraventricular arrhythmias. Frequent premature ventricular contractions, sometimes in bigeminy or trigeminy pattern. No ventricular tachycardia. No significant pauses. Symptoms of sharp chest discomfort are present during the normal sinus rate 02/25/18: Na 138 , K 4.0, CL 102 ,CO2 28 , GLU 96 ,BUN 7 ,CR 0.6 ,AST12 ,ALT 9 02/25/18: TC 140, TG 41, HDL 64 ,LDL 68, TSH 5.34* Results from this visit, or from the past:02/25/18: TC 140, TG 41, HDL 64 ,LDL 68, TSH 5.34*02/25/18: Na 138 , K 4.0, CL 102 ,CO2 28 , GLU 96 ,BUN 7 ,CR 0.6 ,AST12 ,ALT 9, EKG (08/18/20): NSR, NSST changesEKG 02/25/18: Normal sinus rhythm, Low voltage QRS. Borderline ECG, when compared with ECG of 02/25/18. No significant change was found. cf EKG 02/13/18 ; Normal sinus rhythm Within normal limits . Holter Monitor 24 hr 02/25/18: Patient remains predominantly in normal sinus rhythm during the study. No significant supraventricular arrhythmias. Frequent premature ventricular contractions, sometimes in bigeminy or trigeminy pattern. No ventricular tachycardia. No significant pauses. Symptoms of sharp chest discomfort are present during the normal sinus rate. cf Stress Echo Exercise Test 02/25/18: EKG portion of the stress test negative for ischemia. No arrhythmias. Stress echo is negative for ischemia. No chest pain or shortness of breath. Appropriate heart rate and blood pressure response to exercise. Billy De La Cruz [facility] 08/18/2020 16:59:30 11/11/2020 text/html 11/11/20 CC: chest pain fu HPI: 45 year-old WF with PMH of HLD, HTN , obesity of presents for cardiac consultation with a chief complaint of chest pain. No known history of CAD, SD, Arrhythmia, or valvular heart disease Pt presents for scheduled fu. Since last time she states that she presented to ER of [facility] in August 2020.L side of her body was hurtingpt was told that her stress test was normal.after few hours was dc home since then he had a lot ofstress ful situations at home. Pt had stress test and ECHO at [facility] in August 2020.Event monitor was done at [facility] in [place].No records of these tests are available at this point. Now she goes for 1 month vacation to [place]. PreviouslyPt was seen in January 2018 as a new consult, after which they were lost to followup. Her original consultation was for palpitations, dizziness, and chest pain that resulted in an ER visit. At that visit a stress echo, labs and holter were ordered, resulting in: Compliains for episodes of sharp, heavy, sqeezing chest discomfort.. no related to physical actvity. States that sometimes heart stops and restarts.. Stress Echo Exercise Test 02/25/18: EKG portion of the stress test negative for ischemia. No arrhythmias. Stress echo is negative for ischemia. No chest pain or shortness of breath. Appropriate heart rate and blood pressure response to exercise. Holter Monitor 24 hr 02/25/18: Patient remains predominantly in normal sinus rhythm during the study. No significant supraventricular arrhythmias. Frequent premature ventricular contractions, sometimes in bigeminy or trigeminy pattern. No ventricular tachycardia. No significant pauses. Symptoms of sharp chest discomfort are present during the normal sinus rate She returns today due to chest pain. She describes it sharp pain, and sometimes squeezing like someone is twisting in her chest. No correlation to activity. It has woken her up from her sleep, causing her to scream. She feels as though she is skipping beats. She is following up with endocrinology due to thyroid nodules, but she does not require medication. She is pre diabetic.PreviouslyStr ess Echo Exercise Test 02/25/18: EKG portion of the stress test negative for ischemia. No arrhythmias. Stress echo is negative for ischemia. No chest pain or shortness of breath. Appropriate heart rate and blood pressure response to exercise. Holter Monitor 24 hr 02/25/18: Patient remains predominantly in normal sinus rhythm during the study. No significant supraventricular arrhythmias. Frequent premature ventricular contractions, sometimes in bigeminy or trigeminy pattern. No ventricular tachycardia. No significant pauses. Symptoms of sharp chest discomfort are present during the normal sinus rate 02/25/18: Na 138 , K 4.0, CL 102 ,CO2 28 , GLU 96 ,BUN 7 ,CR 0.6 ,AST12 ,ALT 912: TC 140, TG 41, HDL 64 ,LDL 68, TSH 5.34* Results from this visit, or from the past:LIPIDS ([id number]) Cholesterol: 201; Triglycerides: 65; HDL: 65; LDL: 123; HDL: 136 CMP, serum or plasma 08-27-2020 02/25/18: TC 140, TG 41, HDL 64 ,LDL 68, TSH 5.34*02/25/18: Na 138 , K 4.0, CL 102 ,CO2 28 , GLU 96 ,BUN 7 ,CR 0.6 ,AST12 ,ALT 9, electrocardiogram [id number] (08/18/20): NSR, NSST changesEKG 02/25/18: Normal sinus rhythm, Low voltage QRS. Borderline ECG, when compared with ECG of 02/25/18. No significant change was found. cf EKG 02/13/18 ; Normal sinus rhythm Within normal limits . Holter Monitor 24 hr 02/25/18: Patient remains predominantly in normal sinus rhythm during the study. No significant supraventricular arrhythmias. Frequent premature ventricular contractions, sometimes in bigeminy or trigeminy pattern. No ventricular tachycardia. No significant pauses. Symptoms of sharp chest discomfort are present during the normal sinus rate. cf Stress Echo Exercise Test 02/25/18: EKG portion of the stress test negative for ischemia. No arrhythmias. Stress echo is negative for ischemia. No chest pain or shortness of breath. Appropriate heart rate and blood pressure response to exercise. Billy De La Cruz [facility] [place] [facility] 11/11/2020 12:16:24 05/11/2022 text/html 05/11/22CC : Cardiac follow upHPI: 47 year-old WF with PMH of HLD, HTN , and obesity is here for follow up with EKG results. She was last seen in the clinic on 11/11/20, since then she is not very activeShe denies ER visits and hospitalizations since she was last seen. Had left sided chest pain.Denies shortness of breath at rest. Has mild dyspnea on exertion.No orthopnea. No PNDs.Denies heart palpitations.Denies dizziness. Denies syncope or near syncope.No ankle or leg edema.No major bleeding events.No reported side effects from medications. Taking medications as prescribed with no missed doses.Denies snoring, daytime somnolence and AM headache.*Last LDL was 68 done on 02/24/18.Pt dose not takes any statins. EKG 05/04/22 Sinus rhythm, short UT interval, P; normal, QRS; normal, ST-T; normal, conclusion: ECG without significant abnormalities. Previously:She had chest pain. Since last time she states that she presented to ER of [facility] in August 2020.L side of her body was hurtingpt was told that her stress test was normal.after few hours was dc home since then he had a lot of stress ful situations at home. Pt was seen in January 2018 as a new consult, after which they were lost to followup. Her original consultation was for palpitations, dizziness, and chest pain that resulted in an ER visit. At that visit a stress echo, labs and holter were ordered, resulting in: Compliains for episodes of sharp, heavy, sqeezing chest discomfort.. no related to physical actvity. States that sometimes heart stops and restarts.. Stress Echo Exercise Test 02/25/18: EKG portion of the stress test negative for ischemia. No arrhythmias. Stress echo is negative for ischemia. No chest pain or shortness of breath. Appropriate heart rate and blood pressure response to exercise. Holter Monitor 24 hr 02/25/18: Patient remains predominantly in normal sinus rhythm during the study. No significant supraventricular arrhythmias. Frequent premature ventricular contractions, sometimes in bigeminy or trigeminy pattern. No ventricular tachycardia. No significant pauses. Symptoms of sharp chest discomfort are present during the normal sinus rate She returns today due to chest pain. She describes it sharp pain, and sometimes squeezing like someone is twisting in her chest. No correlation to activity. It has woken her up from her sleep, causing her to scream. She feels as though she is skipping beats. She is following up with endocrinology due to thyroid nodules, but she does not require medication. She is pre diabetic.Previously Stress Echo Exercise Test 02/25/18: EKG portion of the stress test negative for ischemia. No arrhythmias. Stress echo is negative for ischemia. No chest pain or shortness of breath. Appropriate heart rate and blood pressure response to exercise. *Holter Monitor 24 hr 02/25/18: Patient remains predominantly in normal sinus rhythm during the study. No significant supraventricular arrhythmias. Frequent premature ventricular contractions, sometimes in bigeminy or trigeminy pattern. No ventricular tachycardia. No significant pauses. Symptoms of sharp chest discomfort are present during the normal sinus rate 02/25/18: Na 138 , K 4.0, CL 102 ,CO2 28 , GLU 96 ,BUN 7 ,CR 0.6 ,AST12 ,ALT 9104/28/17: TC 140, TG 41, HDL 64 ,LDL 68, TSH 5.34* Results from this visit, or from the past:LIPIDS (535887) Cholesterol: 201; Triglycerides: 65; HDL: 65; LDL: 123; HDL: 136 CMP, serum or plasma 08-27-2020 02/25/18: TC 140, TG 41, HDL 64 ,LDL 68, TSH 5.34*02/25/18: Na 138 , K 4.0, CL 102 ,CO2 28 , GLU 96 ,BUN 7 ,CR 0.6 ,AST12 ,ALT 9,electrocardiogram [id number] (08/18/20): NSR, NSST changesEKG 02/25/18: Normal sinus rhythm, Low voltage QRS. Borderline ECG, when compared with ECG of 02/25/18. No significant change was found. cf EKG 02/13/18 ; Normal sinus rhythm Within normal limits . Holter Monitor 24 hr 02/25/18: Patient remains predominantly in normal sinus rhythm during the study. No significant supraventricular arrhythmias. Frequent premature ventricular contractions, sometimes in bigeminy or trigeminy pattern. No ventricular tachycardia. No significant pauses. Symptoms of sharp chest discomfort are present during the normal sinus rate. cf Stress Echo Exercise Test 02/25/18: EKG portion of the stress test negative for ischemia. No arrhythmias. Stress echo is negative for ischemia. No chest pain or shortness of breath. Appropriate heart rate and blood pressure response to exercise. Jose Antonio Elaine MD [address] [place], [address], [facility] 05/11/2022 18:01:14 OBGyn Episode No OBEpisode recorded.
--- OUTSIDE RECORDS SUMMARY | 2025-02-18 16:00 | XMS_ITS | Clinical Summary ---
Author Organization [facility] Address [address] [place] [id number] Care Team Providers Care Lens Molding Equipment Operator Name Role Phone Jon Morales MD Primary Care Provider Allergies Active Allergy Reactions Criticality Noted Date Comments Gloves, Latex With Aloe Vera Unknown 05/24/2020 Powder Scent Fragrance Agitation High 05/24/2020 Pt described throat closing sensation whenever she comes in contact w/ chemical smells and perfumes -RJ Medications nitroglycerin (NITROSTAT) 0.[address] 0.4 mg under the tongue every 5 (five) minutes as needed for chest pain Active vitamin B complex capsule Take 1 capsule by mouth daily Active ascorbic acid (VITAMIN C) 500 mg tablet,chewable Acti ve cholecalciferol (VITAMIN D-3) 5,000 unit capsule Take 1 capsule (5,000 Units total) by mouth daily Active nitrofurantoin monohydrate (MACROBID) 100 mg capsule prn Active azelastine (ASTELIN) 137 mcg (0.1 %) nasal spray Administer 2 sprays into each nostril 2 (two) times a day Use in each nostril as directed 120 mL 2 3 Active fluticasone propionate (FLONASE) 50 mcg/actuation nasal spray Administer 2 sprays into each nostril daily 16 g 5 3 Active Additional Information Patient not taking.Reported on 02/17/2023 albuterol HFA (PROVENTIL HFA,VENTOLIN HFA,PROAIR HFA) 90 mcg/actuation inhalerIndicatio ns:COVID-19 Inhale 2 puffs every 6 (six) hours as needed for wheezing or shortness of breath 1 each 3 Active Additional Information Patient not taking.Reported on 06/06/2023 benzonatate (TESSALON) 200 mg capsuleIndicatio ns:COVID-19 Take 1 capsule (200 mg total) by mouth 3 (three) times a day as needed for cough 30 capsule 3 Active Additional Information Patient not taking.Reported on 06/06/2023 Active Problems Problem Noted Date Diagnosed Date Loss of voice 07/06/2021 Overview (07/06/2021): Occurred in the setting of recent stress at home. Has reportedly happened before. Reports previous laryngeal surgery for a nodule in the early in [facility]. Will refer to ENT Weight gain 08/18/2020 Assessment & Plan (07/06/2021 1:36 PM CDT): Describes successful weight loss with keto diet. Also doing intermittent fasting without eating until later afternoon. Weight is slightly down from previous visits. Diet seems strict, so encouraged careful food diary with food weighing and calorie counting, target 1300 calories daily. Goal 10 lbs weight loss over next 4 months. Assessment & Plan (08/24/2020 4:30 PM CDT): Describes successful weight loss with keto diet but now admits to cheating. Also doing intermittent fasting without eating until later afternoon. Diet seems strict, but without weight loss, so encouraged careful food diary with food weighing and calorie counting, target 1300 calories daily. Goal 10 lbs weight loss over next 4 months. Prediabetes 08/18/2020 Assessment & Plan (07/05/2021 11:43 AM CDT): Borderline with A1c 5.7% today. Discussed lifestyle interventions extensively, including adding exercise and calorie counting with food diary since diet sounds strict but is not leading to weight loss. No pharmacologic intervention for now. Assessment & Plan (08/24/2020 4:22 PM CDT): Borderline with A1c 5.7% today. Discussed lifestyle interventions extensively, including adding exercise and calorie counting with food diary since diet sounds strict but is not leading to weight loss. No pharmacologic intervention for now. Thyroid nodule 08/18/2020 Assessment & Plan (07/06/2021 1:39 PM CDT): Initially thought to have multiple nodules but likely pseudonodules. Last ultrasound identified a single thyroid nodule that did not meet FNA criteria. Will continue to monitor with repeat ultrasound in another 1-2 years. Thyroid function recently normal, will recheck today. Soft, nonenlarged LNs palpable bilaterally. Not concerning at this time. Given that patient is being referred to ENT, will have them evaluate. Assessment & Plan (08/24/2020 4:23 PM CDT): Initially thought to have multiple nodules but likely pseudonodules. Last ultrasound identified a single thyroid nodule that did not meet FNA criteria. Will continue to monitor with repeat ultrasound in another 1-2 years. Thyroid function recently normal. 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 Has reportedly happened before. Reports previous laryngeal surgery for a nodule in the early 1999s in [facility]. Will refer to ENT Family History Medical History Relation Name Comments Diabetes Father Family history of diabetes mellitus - (Added by TW Conv) Diabetes Other Family history of Diabetes mellitus; Breast cancer Neg Hx Ovarian cancer Neg Hx Relation Name Status Comments Father Other Social History Tobacco Use Types Packs/Day Years Used Date Smoking Tobacco: Former Tobacco Cessation:Counseling Given: Not Answered AUDIT-C Answer Date Recorded Q1: How often do you have a drink containing alc ohol? 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 Gender Identity Not on file Sexual Orientation Not on file Obstetrics History Para Term AB IAB SAB Ectopic Multiple Livin g Live Births 3 1 Date Outcome GA Total Labor Labor/2nd/3rd Weight Sex Type Anes PTL Josephine A1 A5 Name Clin Para Comments Last Filed Vital Signs Vital Sign Reading Time Taken Comments Blood Pressure 107/72 08/10/2023 3:27 PM CDT Pulse 67 08/10/2023 3:27 PM CDT Temperature 36.8 C (98.3 F) 08/10/2023 3:27 PM CDT Respiratory Rate 18 02/17/2023 3:43 PM WINDSHIELD WIPER REPAIRER Oxygen Saturation 98% 02/17/2023 3:43 PM WINDSHIELD WIPER REPAIRER Inhaled Oxygen Concentration - - Weight 88.5 kg (195 lb) 08/10/2023 3:27 PM CDT Height 167.6 cm (5' 6) 08/10/2023 3:27 PM CDT Body Mass Index 31.47 08/10/2023 3:27 PM CDT Plan of Treatment Health Maintenance Due Date Last Done Comments Colon Cancer Screening-Colonoscopy 1975 Depression Screening 1975 Hepatitis C Screening 1975 Hepatitis B Screening 1993 Breast Cancer Screening-Mammogram 05/12/2021 05/12/2020, 12/17/2014, 08/13/2014, Additional history exists Cervical Cancer Screening 05/02/2022 05/02/2021 Regular Well Visit/Exam 18-64 05/03/2023 05/03/2022, 05/02/2021 Covid-19 Vaccine ( season) 2024 04/02/2021, 04/19/2020 Influenza Vaccine (#1) 2024 2, 02/24/2020, 12/24/2018, Additional history exists Zoster Vaccine (1 of 2) 2025 DTaP/Tdap/Td Vaccine (2 - Td or Tdap) 03/02/2025 03/02/2015 Pneumococcal vaccine <65 Aged Out No longer eligible based on patient's age to complete this topic Procedures Procedure Name Priority Date/Time Associated Diagnosis Comments PAP AND HIGH RISK HPV, REFLEX TO GENOTYPING Routine 05/02/2021 10:29 AM WINDSHIELD WIPER REPAIRER Well woman exam DIAGNOSTIC MAMMOGRAM BILATERAL W ART Schedule Routine, Read Routine (OP Routine) 05/12/2020 2:59 PM WINDSHIELD WIPER REPAIRER Follow-up exam, 3-6 months since previous exam from Last 3 Months or Most Recently Relevant to Health Maintenance Results * Pap and High Risk HPV, reflex to Genotyping (05/02/2021 10:29 AM WINDSHIELD WIPER REPAIRER) Thin prep (Pap test) 05/02/2021 10:29 AM WINDSHIELD WIPER REPAIRER 05/03/2021 10:29 AM WINDSHIELD WIPER REPAIRER Narrative PATHOLOGY [facility] - 05/06/2021 10:57 AM WINDSHIELD WIPER REPAIRER [facility] Department of Pathology [address] [place] [address] Final Report with Addendum Note to Patients: This report may contain a detailed description of human tissue sent by a health care provider to the laboratory for pathologic evaluation. The content of this report is essential for diagnosis and may provide important critical findings. This information may be unfamiliar to patients to review without a medical professional present. It is advised that the patient review this report in the presence of a health care provider who can answer questions and explain the details. Patient Name: NAVJOT PURVIS Address: [address] [place] [address] Gender: F : 1975 (Age: 46) Service: Laboratory Location: Hospital #: [id number] Patient Type: [facility] SPECIMEN Taken: 05/02/2021 Received: 05/03/2021 Accessioned:: 05/04/2021 Reported: 05/06/2021 Physician(s): Choco Patiño M.D. [facility] Diagnosis: Source of Specimen: SCREENING THIN PREP IMAGED PAP w/ HPV Specimen Adequacy: - Satisfactory for evaluation; endocervical/transformation zone component present General Category: - Negative for intraepithelial lesion or malignancy SURAJ Omer(ASCP) Report Electronically Reviewed and Signed Out By ZULEIMA OmerASCP) 05/06/2021 10:57:14 Addenda: HPV Test Interpretation NEGATIVE for types 16, 18, 31, 33, 35, 39, 45, 51, 52, 56, 58, 59, 66 and 68. Test performed utilizing Gen-Bio[employer] Aptima assay. SURAJ Nino(ASCP) Report Electronically Reviewed and Signed Out By SURAJ Nino(ASCP) 05/05/2021 12:54:48 Specimen(s) Received: A: SCREENING THIN PREP IMAGED PAP w/ HPV Clinical History: Last Menstrual Period: 04/18/21 The Pap test is a screening test used to aid in the detection of cervical cancer and its precursors. It should not be the sole means by which malignant and premalignant lesions are diagnosed. Both false negative and false positive results may occur. It also has poor sensitivity for the detection of endometrial lesions and should not be used to evaluate suspected endometrial abnormalities. For these reasons it is most important to obtain Pap tests at regular intervals. The performance characteristics of some immunohistochemical stains, fluorescence in-situ hybridization tests and immunophenotyping by flow cytometry cited in this report (if any) were determined by the Surgical Pathology Department at [facility] as part of an ongoing rn clinical quality program and in compliance with federally mandated regulations drawn from the Clinical Laboratory Improvement Act of 1988 (CLIA '88). Some of these tests rely on the use of analyte specific reagents and are subject to specific labeling requirements by the US Food and Drug Administration. Such diagnostic tests may only be performed in a facility that is certified by the Department of Health and Human Services as a high complexity laboratory under CLIA '88. The FDA has determined that such clearance or approval is not necessary. This test is used for clinical purposes. It should not be regarded as investigational or for research. Nevertheless, federal rules concerning the medical use of analyte specific reagents require that the following disclaimer be attached to the report: This test was developed and its performance characteristics determined by the Surgical Pathology Department [facility]. It has not been cleared or approved by the U. S. Food and Drug Administration. Choco Patiño MD LAB CYTOLOGY ORDERABLES Final Result PATHOLOGY [facility] * Diagnostic Mammogram Bilateral W Art (05/12/2020 2:59 PM WINDSHIELD WIPER REPAIRER) Anatomical Region Laterality Modality Breast Bilateral Mammography 05/12/2020 3:17 PM WINDSHIELD WIPER REPAIRER Impressions 05/12/2020 3:18 PM WINDSHIELD WIPER REPAIRER No suspicious mammographic abnormality in either breast. OVERALL FINAL ASSESSMENT: BI-RADS Category 2: Benign. Annual screening mammography is recommended. Dictated by: Robert Ramesy M.D. The radiology attending physician has personally reviewed this study, and had reviewed and/or edited this written report and agrees with it. Electronically signed by: Marie Dodd M.D. Narrative 05/12/2020 3:18 PM WINDSHIELD WIPER REPAIRER EXAMINATION: BILATERAL DIGITAL DIAGNOSTIC MAMMOGRAM INCLUDING CAD AND BILATERAL DIGITAL BREAST TOMOSYNTHESIS HISTORY: 45-year-old woman with history of right breast BI-RADS 3 lesion and last mammogram in 2014. COMPARISON: Mammogram, 03/01/2015, 08/12/2014 TECHNIQUE: Full field digital mammographic views of BOTH breasts were performed, including computer aided detection (CAD) and BILATERAL digital breast tomosynthesis (DBT). BREAST PARENCHYMAL COMPOSITION: The breasts are heterogenously dense, which may obscure small masses. MAMMOGRAM FINDINGS: There is no mass, calcification or architectural distortion suggestive of malignancy within EITHER breast. Procedure Note Marie Dodd MD - 05/12/2020 EXAMINATION: BILATERAL DIGITAL DIAGNOSTIC MAMMOGRAM INCLUDING CAD AND BILATERAL DIGITAL BREAST TOMOSYNTHESIS HISTORY: 45-year-old woman with history of right breast BI-RADS 3 lesion and last mammogram in 2014. COMPARISON: Mammogram, 03/01/2015, 08/12/2014 TECHNIQUE: Full field digital mammographic views of BOTH breasts were performed, including computer aided detection (CAD) and BILATERAL digital breast tomosynthesis (DBT). BREAST PARENCHYMAL COMPOSITION: The breasts are heterogenously dense, which may obscure small masses. MAMMOGRAM FINDINGS: There is no mass, calcification or architectural distortion suggestive of malignancy within EITHER breast. IMPRESSION: No suspicious mammographic abnormality in either breast. OVERALL FINAL ASSESSMENT: BI-RADS Category 2: Benign. Annual screening mammography is recommended. Dictated by: Robert Ramsey M.D. The radiology attending physician has personally reviewed this study, and had reviewed and/or edited this written report and agrees with it. Electronically signed by: Marie Dodd M.D. Jon Morales MD IM MAMMO PROCEDURES Fi nal Result from Last 3 Months or Most Recently Relevant to Health Maintenance Insurance [address] [place] [phone] [facility] Address[facility] [address] [place] [address] [address] [place] [address] [employer] [address] [place] [address] [employer] Care Teams Lens Molding Equipment Operator Relationship Specialty Start Date End Date Jon Morales MD [address] [place] [id number] PCP - General 01/09/20
[2025-02-18 16:06] VITALS: BP 115/82; PULSE 88; RESP 17; TEMP 36.6; O2SAT 98
--- NOTE | 2025-02-18 16:15 | ED.GENADULT ---
HPI - General Adult General Chief complaint: Unspecified Stated complaint: parasites in my eyes and in my brain Time Seen by Provider: 02/18/25 15:59 History of Present Illness HPI narrative: Patient presents here stating she has had parasites coming out of her eyes, mouth, hair for the last 2.5 weeks; she took herbal mixture including wormwood, black cohosh, and cloves which fixed it but now is starting back up. She called her PCP who told her to come to the ER. Related Data Allergies Allergy/AdvReac Type Severity Reaction Status Date / Time doxycycline Allergy Mild Abdominal Verified 02/18/25 16:31 Pain Review of Systems Review of Systems: All systems reviewed & are unremarkable except as noted in HPI and below Exam Narrative: EXAMINATION OF ORGAN SYSTEMS/BODY AREAS: Constitutional: Vital signs per nursing GENERAL:[No acute distress, non-toxic appearing.] HEAD: Normal with no signs of head trauma. EYES: EOMI, conjunctiva normal, no signs of parasites ENT: Hearing grossly intact LUNGS: Nonlabored breathing. HEART: [Regular rate and rhythm] ABD: [Soft], [nontender to palpation] EXT: Normal range of motion SKIN: [No rashes or lesions.] NEURO: [Alert and oriented x 3. No gross focal sensory or strength deficits.] PSYCH: Normal affect; persistent delusional parasitosis Course Vital Signs Vital signs: Vital Signs Temperature 98 F 02/18/25 16:06 Pulse Rate 88 02/18/25 16:06 Respiratory Rate 17 02/18/25 16:06 Blood Pressure 115/82 02/18/25 16:06 Pulse Oximetry 98 02/18/25 16:06 Oxygen Delivery Room Air 02/18/25 16:06 Temperature 98 F 02/18/25 16:06 Pulse Rate 88 02/18/25 16:06 Respiratory Rate 17 02/18/25 16:06 Blood Pressure 115/82 02/18/25 16:06 Pulse Oximetry 98 02/18/25 16:06 Oxygen Delivery Room Air 02/18/25 16:06 Medical Decision Making [facility] Narrative Medical decision making narrative: Patient presents here stating she has had parasites coming out of her eyes, mouth, hair for the last 2.5 weeks; she took herbal mixture including wormwood, black cohosh, and cloves which fixed it but now is starting back up. She called her PCP who told her to come to the ER. I did call her doctor's office (I did note he is ID) and they let me know she has not been seen there in 2 years. I do not see any signs of parasites in her eyes, on her skin or anywhere else. She showed me a tiny black object she thinks might be parasite stool from her mouth. I discussed with patient she should follow up with her PCP for this and can return if symptoms worsen. Vital Signs Vital Signs: Vital Signs Temperature 98 F 02/18/25 16:06 Pulse Rate 88 02/18/25 16:06 Respiratory Rate 17 02/18/25 16:06 Blood Pressure 115/82 02/18/25 16:06 Pulse Oximetry 98 02/18/25 16:06 Oxygen Delivery Room Air 02/18/25 16:06 Temperature 98 F 02/18/25 16:06 Pulse Rate 88 02/18/25 16:06 Respiratory Rate 17 02/18/25 16:06 Blood Pressure 115/82 02/18/25 16:06 Pulse Oximetry 98 02/18/25 16:06 Oxygen Delivery Room Air 02/18/25 16:06 Lab Data Labs: Lab Results 02/18/25 Range/Units 16:28 Urine Opiates Screen Negative (Negative) Urine Methadone Screen Negative (Negative) Ur Barbiturates Screen Negative (Negative) Ur Phencyclidine Scrn Negative (Negative) Ur Amphetamine Screen Negative (Negative) U Benzodiazepines Scrn Negative (Negative) Urine Cocaine Screen Negative (Negative) U Cannabinoids Screen Negative (Negative) Discharge Plan Discharge Clinical Impression: Delusions of parasitosis Patient Disposition: Home Condition: Stable Additional Instructions: I do not see any signs or evidence of parasites on your exam today. Please follow-up with your primary care/infectious diseases doctor for further evaluation and tests. Patient Language: Serbian Prescriptions: No Action cyclobenzaprine 5 mg tablet 5 mg PO TID PRN (Reason: muscle spasm) Qty: 10 0RF Follow-up/Referrals: RenzoJon M.D. [Primary Care Provider] - 2 Days
[2025-02-18 16:54] LABS: Cannabinoid Screen Urine Negative (Negative)
== END 2025-02-18 17:28 | disposition home or self-care (01) ==
PROVIDERS: Emergency Provider Emergency Medicine; PCP Internal Medicine Infectious Disease
DX: F22 Delusional disorders (principal)
CPT/HCPCS: 80307; 99283